=== PATIENT | female | born 1960 | race Caucasian/White ===

== ENCOUNTER → 2016-12-07 16:41 | Outpatient (CLI) | payer BC | END | disposition home or self-care (01) | LOC: D.MAMMO 11-08 14:30 | DX: Z12.31 Encounter for screening mammogram for malignant neoplasm of breast (principal) ==

== ENCOUNTER 2019-01-29 08:00 | Outpatient (CLI) | payer BC | END 2019-01-29 09:00 | disposition home or self-care (01) | LOC: D.MAMMO 08:00 | PROVIDERS: ATTEND Family Medicine | DX: Z12.31 Encounter for screening mammogram for malignant neoplasm of breast (principal) ==

== ENCOUNTER 2020-05-21 17:00 | Outpatient (CLI) | payer BC | END 2020-05-21 23:59 | disposition home or self-care (01) | LOC: D.MAMMO 17:00 | PROVIDERS: ATTEND Nurse Practitioner Women's Health | DX: Z12.31 Encounter for screening mammogram for malignant neoplasm of breast (principal) ==

== ENCOUNTER → 2021-02-18 08:06 | Outpatient (CLI) | payer BC | END | disposition home or self-care (01) | LOC: D.HCCARDIO 08:06 → D.HCCECHO 10:30 | PROVIDERS: ATTEND Internal Medicine Interventional Cardiology | DX: Z03.89 Encounter for observation for other suspected diseases and conditions ruled out (principal); I10 Essential (primary) hypertension ==

== ENCOUNTER 2021-02-26 06:44 | Day surgery (SDC) | payer BC ==
[~2021-02-26] VITALS: Ht 157.5 cm; Wt 65.2 kg
--- NOTE | ~2021-02-26 | HEMODYNAMI ---
PATIENT:ALVAREZ SIMON MEDICAL RECORD: [id number] : 62 LOCATION:[facility] ADMISSION DATE: 02/26/21 Generatedon:18:38 Patient name: ALVAREZ SIMON Patient #: [id number] : 1960 Date of study: 02/26/2021 Page: Of Hemodynamic Procedure Report Patient Data Patient Demographics Procedure consent was obtained First Name: ALVAREZ Gender: Female Last Name: ALFRED : 1960 Middle Initial: TIAGO Age: 61 year(s) Patient #: [id number] Race: Unknown SSN: [id number] Additional ID: [id number] Contact details [address]: [address] [place] [address] State: [place] City: [place] Zip code: [address] Past Medical History Allergies Allergen Reaction Date Comments Reported Other allergy 02/26/2021 Admission Admission Data Admission Date: 02/26/2021 Admission Time: 6:44 Admit Source: Other [facility] #: [id number] Height (in.): 64 BSA: 1.71 (m2) Height (cm.): 162.56 BMI: 25.06 (kg/m2) Weight (lbs.): 146 Weight (kg.): 66.22 Lab Results Lab Result Date: 02/26/2021 Lab Result Time: 0:00 Biochemistry Name Units Result Min Max BUN mg/dl 23 --(----)-* 7 18 Creatinine mg/dl 1 --(--*-)-- 0.6 1.3 eGFR ml/min 60 *-(----)-- 90 120 NONAFRICAN CBC Name Units Result Min Max Hematocrit % 31.5 *-(----)-- 42 54 Hemoglobin g/dl 10.4 *-(----)-- 13.5 17.5 Procedure Procedure Types Cath Procedure Diagnostic Procedure LHC LHC w/Coronaries Sedation Charges Moderate Sedation 10-24 minutes Procedure Description Procedure Date Procedure Date: 02/26/2021 Procedure Start Time: 8:25 Procedure End Time: 8:37 Procedure Staff Name Function Mumtaz Baptiste MD Performing Physician Eliana Giron RT Monitor Iglesia Rangel RN Nurse Mildred Barrett RT Scrub Procedure Data Cath Procedure Fluoroscopy Diagnostic fluoroscopy Total fluoroscopy Time: 1.4 time: 1.4 min min Diagnostic fluoroscopy Total fluoroscopy dose: 213 dose: 213 mGy mGy Contrast Material Contrast Material Type Amount (ml) Isovue 300 49 Entry Location Entry Primary Successful Side Size Upsize Upsize Entry Closure Succes sful Closure Location (Fr) 1 (Fr) 2 (Fr) Remarks Device Remarks Femoral Right 5 Fr Exoseal artery Estimated blood loss: 10 ml Diagnostic catheters Device Type Used For End Catheter Placement MULTIPACK JL 4.0 5Fr Procedure catheter MULTIPACK 3DRC 5Fr Procedure catheter MULTIPACK Pigtail 5 Fr Ventriculography catheter Procedure Complications No complications Procedure Medications Medication Administration Route Dosage 0.9% NaCl I.V. 100 ml/hr Oxygen etCO2 Nasal cannula 2 l/min Heparin Flush Bag added to field 2 bags (1000units/500ml NS) Lidocaine 2% added to field 20 Versed I.V. 1 mg Fentanyl I.V. 50 mcg Versed I.V. 1 mg Fentanyl I.V. 50 mcg Hemodynamics Rest BSA: 1.71 (m2) HGB: 10.4 (g/dl) O2 Consumption: Estimated: 171.8 (ml/min) O2 Con sumption indexed: Estimated:100.47 (ml/min/m) Heart Rate: 85 (bpm) Pressure Samples Time Site Value (mmHg) Purpose Heart Use Rate(bpm) 8:33 LV 104/6,16 Snapshot 87 8:33 AO 109/59(81) Pullback 85 8:33 LV 107/7,18 Pullback 85 Gradients Valve Time Site 1 Site 2 Mean SEP/DFP Peak To Heart Use (mmHg) (sec/min) Peak Rate (mmHg) (bpm) Aortic 8:33 LV AO 0 8 0 85 107/7,18 109/59(81) Calculations Valve P-P Mean Valve Index Valve Source Name Gradient Area Flow (cm2) Aortic 0 0 0 0 Snapshots Pre Cath Intra NCS Post Cath Vital Signs Time Heart Resp SPO2 etCO2 NIBP (mmHg) Rhythm Pain Sedation Rate (ipm) (%) (mmHg) Status Level (bpm) 8:09:05 84 10 100 42 131/80(108) NSR 0 (11) 10(A) , No pain 8:13:15 81 14 100 39.7 112/72(90) NSR 0 (11) 10(A) , No pain 8:17:19 80 18 99 42.8 111/69(91) NSR 0 (11) 10(A) , No pain 8:21:22 83 11 98 27.7 105/68(95) NSR 0 (11) 10(A) , No pain 8:25:24 84 14 98 39 104/66(82) NSR 0 (11) 10(A) , No pain 8:29:30 85 16 97 36.7 99/54(91) NSR 0 (11) 9(A) , No pain 8:33:31 88 16 97 38.2 103/56(74) NSR 0 (11) 9(A) , No pain Medications Time Medication Route Dose Verified Delivered Reason Notes Effe ctiveness by by 8:10:58 0.9% NaCl I.V. 100 Iglesia Iglesia Per ml/hr Claire Rangel physician RN RN 8:11:07 Oxygen etCO2 2 Iglesia Iglesia for low 02 Nasal l/min Lorigan Lorigan sats cannula RN RN 8:11:25 Heparin Flush added 2 Iglesia Iglesia used for Bag to bags Lorigan Lorigan procedure (1000units/500ml field RN RN NS) 8:11:40 Lidocaine 2% added 20ml Iglesia Iglesia for local to vial Lorigan Lorigan anesthetic field RN RN 8:13:02 Versed I.V. 1 mg Iglesia Iglesia for Lorigan Lorigan sedation RN RN 8:13:11 Fentanyl I.V. 50 Iglesia Iglesia for mcg Lorigan Lorigan sedation RN RN 8:29:07 Versed I.V. 1 mg Iglesia Iglesia for Lorigan Lorigan sedation RN RN 8:29:12 Fentanyl I.V. 50 Iglesia Iglesia for mcg Lorigan Lorigan sedation RN size mixer Log Time Note 7:41:09 Admit Source: Other 7:44:51 Patient Weight : 146 lbs 7:45:00 Patient Height : 64 inches 7:45:44 Procedure Status Elective Heart Cath (OP). 7:51:26 Iglesia Rangel RN sent for patient. Start room use. 7:51:28 Time tracking: Regular hours (M-F 7:00 - 5:00) 7:51:34 Plan of Care:Hemodynamics will remain stable., Cardiac rhythm will remain stable., Comfort level will be maintained., Respiratory function will remain adequate., Patient/ family verbilizes understanding of procedure., Procedure tolerated without complication., Recovers from procedure without complications.. 7:59:35 Patient received from Pre/Post Procedure Room to CCL 2 Alert and oriented. Tansferred to table in Supine position. 7:59:39 Signed procedure consent form obtained from patient. 7:59:40 Warm blankets applied, and liz hugger turned on for patient comfort. 7:59:40 Correct patient and procedure confirmed by team. 7:59:41 ECG and BP/O2 sat monitors applied to patient. 8:08:00 Vital chart was started 8:08:01 Baseline sample Acquired. 8:09:01 Rhythm: sinus rhythm 8:09:04 Full Disclosure recording started 8:09:16 H&P Date Dictated: 02/03/2021 Within 30 days and on chart., H&P Addendum completed by physician on day of procedure. (MUST COMPLETE FOR ALL OUTPATIENTS). 8:09:18 Pre-procedure instructions explained to patient. 8:09:24 Family in waiting room. 8:09:27 Patient NPO since Midnight. 8:09:40 Patient allergic to Other allergy 8:09:44 Is the patient allergic to Iodine/contrast media? No. 8:09:46 Was the patient premedicated? Yes 8:10:00 Is patient on blood thinner?No 8:10:41 Patient diabetic? No. 8:10:45 Snore? Yes 8:10:46 Sleep apnea? No 8:10:51 Dentures? No ? 8:10:57 Patient pain scale 0/10 ?. 8:10:58 0.9% NaCl 100 ml/hr I.V. was administered by Iglesia Rangel RN; Per physician; Verbal order read back and verified. 8:11:06 IV patent on arrival in left forearm with 0.9% NaCl at [facility]. 8:11:07 Oxygen 2 l/min etCO2 Nasal cannula was administered by Iglesia Lorigan RN; for low 02 sats; Verbal order read back and verified. 8:11:17 Stress Test: yes; abnormal apical 8:11:22 Right groin area was prepped with chlora-prep and draped in sterile fashion 8:11:23 Alarms reviewed by R. N. 8:11:24 Sharps counted by scrub and verified by R.N. 8:11:25 Heparin Flush Bag (1000units/500ml NS) 2 bags added to field was administered by Iglesia Rangel RN; used for procedure; Verbal order read back and verified. 8:11:28 Physician paged 8:11:40 Lidocaine 2% 20ml vial added to field was administered by Iglesia Rangel RN; for local anesthetic; Verbal order read back and verified. 8:12:44 --------ALL STOP TIME OUT------ 8:12:48 Final Timeout: patient, procedure, and site verified with staff and physician. All members of the team are in agreement. 8:12:51 Right groin site verified by team. 8:12:56 Fire Safety Assessment: A--An alcohol-based skin anteseptic being used preoperatively., C--Open oxygen or nitrous oxide is being used., D--An ESU, laser, or fiber-optic light is being used. 8:12:59 Physical assessment completed. ASA score P 2 - A patient with mild systemic disease as per Mumtaz Baptiste MD. 8:13:02 Versed 1 mg I.V. was administered by Iglesia Rangel RN; for sedation; Verbal order read back and verified. 8:13:02 2) 60-89 Mildly reduced kidney function, and other findings (as for stage 1) point to kidney disease. 8:13:06 Maximum allowable contrast dose (3.7 X eGFR X 0.75)166 ml. 8:13:11 Fentanyl 50 mcg I.V. was administered by Iglesia Rangel RN; for sedation; Verbal order read back and verified. 8:13:13 Sedation plan: IV Moderate Sedation Medication:Versed, Fentanyl 8:25:08 Procedure started. 8:25:11 Local anesthetic to right femoral artery with Lidocaine 2% by Mumtaz Baptiste MD.INITIAL ACCESS ONLY 8::54 Lab Result : Creatinine 1 mg/dl 8:25:54 Lab Result : BUN 23 mg/dl 8::54 Lab Result : Hemoglobin 10.4 g/dl 8::54 Lab Result : eGFR NONAFRICAN 60 ml/min 8::54 Lab Result : Hematocrit 31.5 % 8:26:30 A 5 Fr sheath was inserted into the Right Femoral artery 8:28:27 Use device set Femoral Dx 8:28:28 ACIST Syringe (04193) opened to sterile field. 8:28:29 Bag Decanter (2002S) opened to sterile field. 8:28:29 Medline Cath Pack ([id number]) opened to sterile field. 8:28:31 ACIST Hand Control (86511) opened to sterile field. 8:28:31 ACIST Manifold (12989) opened to sterile field. 8:28:31 DIAGNOSTIC Multipack 5Fr catheter set ([id number]) opened to sterile field. 8:28:34 SHEATH 5FR [place] (HSV582) opened to sterile field. 8:28:34 EMERALD Guide Wire (643-833) opened to sterile field. 8:28:41 A MULTIPACK JL 4.0 5Fr catheter was advanced over the wire and used for Procedure. 8:28:44 LCA angiography performed. 8:29:07 Versed 1 mg I.V. was administered by Iglesia Rangel RN; for sedation; Verbal order read back and verified. 8:29:12 Fentanyl 50 mcg I.V. was administered by Iglesia Rangel RN; for sedation; Verbal order read back and verified. 8:30:05 Catheter removed. 8:30:12 A MULTIPACK 3DRC 5Fr catheter was advanced over the wire and used for Procedure. 8:30:18 RCA angiography performed. 8:31:37 Catheter removed. 8:32:03 A MULTIPACK Pigtail 5 Fr catheter was advanced over the wire and used for Ventriculography. 8:33:15 EF : 55 % 8:33:33 LV gram done using LEYVA 8:33:39 Catheter removed. 8:33:42 EXOSEAL 5Fr (EX500) opened to sterile field. 8:33:44 Tegaderm 4 x 4 (1626W) opened to sterile field. 8:34:32 Sheath removed intact; hemostasis achieved with Exoseal to the Right Femoral artery. 8:34:35 Procedure ended.(Physican Out) 8:35:04 Fluoroscopy time 01.40 minutes. 8:35:09 Fluoroscopy dose: 213 mGy 8:35:09 Flurop Dose total: 213 8:35:17 Dose Area Product 16624 mGy/cm. 8:35:21 Contrast amount:Isovue 300 49ml. 8:35:23 Maximum allowable dose exceeded? No. 8:35:24 Sharps counted by scrub and verified by R.N. 8:35:29 Insertion/operative site no bleeding no hematoma. 8:35:33 Post-op/insertion site Right Femoral artery dressed using a 4 x 4 and Tegaderm. 8:35:50 Post right femoral artery:stable 8:35:53 Post Procedure Pulses reassessed and unchanged 8:35:59 Post-procedure physical assessment completed. ASA score P 2 - A patient with mild systemic disease as per Mumtaz Baptiste MD. 8:36:02 Post procedure rhythm: unchanged. 8:36:05 Estimated blood loss: 10 ml 8:36:07 Post procedure instruction explained to patient.Patient verbalizes understanding. 8:36:20 Procedure type changed to Cath procedure, Diagnostic procedure, LHC, C w/Coronaries, Sedation Charges, Moderate Sedation 10-24 minutes 8:36:22 Procedure and supply charges have been captured, reviewed, submitted and are correct. 8:36:46 Procedure Complication : No complications 8:36:49 Vital chart was stopped 8:36:51 [facility] Findings: mild to moderate CAD (<70%) 8:36:53 See physician's report for complete and final results. 8:36:54 Report given to Pre/Post Procedure Room. 8:36:58 Patient transfered to Pre/Post Procedure Room with Stretcher. 8:37:01 Procedure ended. 8:37:01 Full Disclosure recording stopped 8:37:14 End room use (Document Last) 8:37:45 End room use (Document Last) 8:38:29 End room use (Document Last) Device Usage Item Name Manufacture Quantity Catalog Hospital Part Current Minimal L ot# / Number Charge Number Stock Stock Serial# Code ACIST Acist 1 32207 172954 306601 811073 20 Syringe [employer] (83040) Systems Inc Bag Microtek 1 043147 35247 458106 5 Decanter [employer] () Medline Medline 1 [id number] 199937 51944 991556 5 Cath Pack ([id number]) ACIST Hand Acist 1 69130 093464 459489 348670 5 Control Medical (29141) Systems Inc ACIST Acist 1 14244 523201 211511 494161 5 Manifold Medical (81991) Systems Inc DIAGNOSTIC Cardinal 1 FH8328 397621 66084 129993 30 Multipack Health 5Fr catheter set (KB7305) SHEATH 5FR Terumo 1 WUL689 308367 966453 027718 5 [place] (UKE636) EMERALD Cardinal 1 502-943 063363 028001 371130 5 Guide Wire Health (502-743) MULTIPACK Cardinal 1 959772 5 JL 4.0 5Fr Health catheter MULTIPACK Cardinal 1 022829 5 3DRC 5Fr Health catheter MULTIPACK Cardinal 1 864064 5 Pigtail 5 Health Fr catheter EXOSEAL 5Fr Cardinal 1 EX500 855114 823537 831946 10 (EX500) Health Tegaderm 4 3M 1 1626W 552021 222521 143798 5 x 4 (1626W) Signature Audit [place] Stage Time Signature Unsigned Intra-Procedure 02/26/2021 Eliana Giron 8:37:45 AM RT(R) Intra-Procedure 02/26/2021 Iglesia 8:38:29 AM Claire HAWKINS Intra-Procedure 02/26/2021 Mumtaz Baptiste MD 8:38:56 AM Signatures Performing Physician : Signature : Mumtaz Baptiste MD Date : Time : Monitor : Eliana Giron Signature : RT Date : Time : Nurse : Iglesia Rangel Signature : RN Date : Time : [place] [id number] [place] [address]
[2021-02-26] MEDS ORDERED: ZANAFLEX4 MG PO (07:07)
[2021-02-26] MEDS ORDERED: NEURONTIN600 MG PO (07:07)
[2021-02-26] MEDS ORDERED: ZOLOFT50 MG PO (07:08)
[2021-02-26] MEDS ORDERED: BYSTOLIC5 MG PO (07:08)
[2021-02-26] MEDS ORDERED: LISINOPRIL20 MG PO (07:09)
[2021-02-26] MEDS ORDERED: SINGULAIR10 MG PO (07:09)
[2021-02-26] MEDS ORDERED: HYDROCODON-ACE1 EA10 PO (07:09)
[2021-02-26] MEDS ORDERED: ATIVAN2 MG PO (07:10)
[2021-02-26] MEDS ORDERED: PAMELOR 25 MG C25 MG PO (07:10)
[2021-02-26] MEDS ORDERED: NEXIUM40 MG PO (07:11)
[2021-02-26] MEDS ORDERED: NEXLETOL180 MG PO (07:11)
[2021-02-26] MEDS ORDERED: CLARITIN 10 MG10 MG PO (07:12)
[2021-02-26] MEDS ORDERED: MELOXICAM 15 MG (07:12)
[2021-02-26] MEDS ORDERED: MOBIC7.5 MG PO (07:13)
[2021-02-26 07:42] LABS: BASOPHILS 1.3 % (0-2); EOSINOPHILS 4.3 % (0-7); HEMATOCRIT 31.5 % (36.0-48.0); HEMOGLOBIN 10.4 g/dL (12-16); LYMPHOCYTES 32.8 % (15-50); MCH 29.4 pg (26.0-34.0); MCHC 33.1 g/dL (31.0-37.0); MCV 88.9 fL (80.0-100.0); MEAN PLATELET VOLUME 6.7 fL (7.4-10.4); MONOCYTES 9.7 % (2-11); NEUTROPHILS 51.9 % (40-80); PLATELET COUNT 489 10x3/uL (130-400); RBC 3.54 10x6/uL (4.00-5.40); RDW 15.4 % (11.5-14.5); WBC 6.5 10x3/uL (4.8-10.8)
[2021-02-26 07:48] VITALS: BP 125/83; Ht 157.5 cm; Wt 65.2 kg
[2021-02-26 07:56] LABS: ANION GAP 13.2 mmol/L (8-16); CALCIUM 8.4 mg/dL (8.5-10.1); CARBON DIOXIDE 25.5 mmol/L (21.0-32.0); CHOL - HDL RATIO 3.7 ratio (2.3-4.1); POTASSIUM - SERUM 3.7 mmol/L (3.5-5.1)
--- NOTE | 2021-02-26 08:50 | NUR ---
PT REC'D TO CATH RECOVERY ROOM 12 VIA STRETCHER. MONITORS ESTAB. URBAN AT . SEE SCIENCES DEAN FLOWSHEETS, ALARMS ON AND C/L IN REACH.
--- NOTE | 2021-02-26 09:05 | NUR ---
SISTER AT , UPDATE GIVEN AND QUESTIONS ANSWERED. R GROIN SITES SOFT, NO S/S BLEEDING OR HEMATOMA. R LEG/FOOT WARM WITH PALP PULSES AND BRISK CAP REFILL. PT RESTING QUIETLY, DENIES PAIN OR NEEDS. ALARMS ON AND C/L IN REACH.
--- NOTE | 2021-02-26 09:35 | NUR ---
PT RESTING QUIETLY. R GROIN SITE SOFT, NO S/S BLEEDING OR HEMATOMA. R LEG/FOOT WARM WITH PALP PULSES AND BRISK CAP REFILL. ALARMS ON AND C/L IN REACH.
--- NOTE | 2021-02-26 09:50 | NUR ---
R GROIN SITE SOFT, NO S/S BLEEDING OR HEMATOMA, PULSES PALP. PT RESTING QUIELTY. VSS. PT DENIES PAIN OR NEEDS. ALARMS ON AND C/L IN REACH.
--- NOTE | 2021-02-26 10:15 | NUR ---
R GROIN SITE SOFT, NO S/S BLEEDING OR HEMATOMA. PULSES PALP. HOB ELEVATED. WATER AND SPRITE PROVIDED, PT REFUSES SANDWICH AT THIS TIME. VSS. BOYFRIEND AT BS. PT ASKING WHEN SHE CAN GO HOME, DISCUSSED D/C POC AND PLAN FOR D/C AT 1115. C/L IN REACH.
--- NOTE | 2021-02-26 10:45 | NUR ---
R GROIN SITE SOFT, NO S/S BLEEDING OR HEMATOMA. PULSES PALP. PT DENIES PAIN OR NEEDS. VSS. ALARMS ON AND C/L IN REACH.
--- NOTE | 2021-02-26 10:57 | NUR ---
DR. MADRIGAL IN TO SEE PT, UPDATE GIVEN AND QUESTIONS ANSWERED.
--- NOTE | 2021-02-26 11:01 | NUR ---
PIV D/C'D INTACT, DSG APPLIED. PT ALLOWED UP TO GET DRESSED AND GO TO BR INDEPENDENTLY.
--- NOTE | 2021-02-26 11:07 | NUR ---
ALL DISCHARGE INSTRCTIONS REVIEWED WITH PT, INCLUDING RESTRICTIONS, MEDS AND F/U APPT. PT VERBALIZES UNDERSTANDING, NO OTHER QUESTIONS AT THIS TIME.
--- NOTE | 2021-02-26 11:12 | NUR ---
PT D/C'D VIA WC TO PRIVATE VEHICLE WITH ALL PAPERWORK AND BELONGINGS.
== END 2021-02-26 11:12 | disposition home or self-care (01) ==
LOC: D.CATH 06:44
PROVIDERS: ATTEND Internal Medicine Cardiovascular Disease
DX: I20.8 Other forms of angina pectoris (principal); R94.39 Abnormal result of other cardiovascular function study; I10 Essential (primary) hypertension; R00.0 Tachycardia, unspecified; Z82.49 Family history of ischemic heart disease and other diseases of the circulatory system